=== PATIENT | male | born 1975 | race Caucasian/White ===

== ENCOUNTER 2017-02-14 14:14 | Emergency (ER) | payer SELFPAY ==
[~2017-02-14] VITALS: Ht 193 cm; Wt 81.9 kg
[~2017-02-14 14:14] MED LIST: IMODIUM MS REL1 EACH PO; NOHOMEMEDS; ZOFRAN4 MG PO
[2017-02-14] MEDS ORDERED: PREDNISONE20 MG PO (16:51)
[2017-02-14] MEDS ORDERED: MOTRIN800 MG PO (16:51)
[2017-02-14 18:59] VITALS: BP 124/80
== END 2017-02-14 19:00 | disposition home or self-care (01) ==
LOC: EME 14:14
DX: M54.41 Lumbago with sciatica, right side (principal); F17.200 Nicotine dependence, unspecified, uncomplicated; F12.90 Cannabis use, unspecified, uncomplicated; Z72.89 Other problems related to lifestyle
CPT/HCPCS: 72100; 99281; 99283; J1885; J7512

== ENCOUNTER 2018-03-19 18:03 | Emergency (ER) | payer MEDICARE ==
[~2018-03-19] VITALS: Ht 193 cm; Wt 82.1 kg
[~2018-03-19 18:03] MED LIST changes: +MOTRIN800 MG PO; +PREDNISONE20 MG PO
[2018-03-19] MEDS ORDERED: LIDODERM 5% P1 PATCH TD (21:11)
[2018-03-19] MEDS ORDERED: FLEXERIL10 MG PO (21:11)
[2018-03-19] MEDS ORDERED: MOTRIN800 MG PO (21:12)
[2018-03-19] MEDS ORDERED: PREDNISONE20 MG PO (21:16)
[2018-03-19 21:22] VITALS: BP 136/80
== END 2018-03-19 21:22 | disposition home or self-care (01) ==
LOC: EME 18:03
DX: M54.41 Lumbago with sciatica, right side (principal); X50.1XXA Overexertion from prolonged static or awkward postures, initial encounter; Y99.0 Civilian activity done for income or pay; F17.200 Nicotine dependence, unspecified, uncomplicated
CPT/HCPCS: 72100; 99281; 99284; J1885